=== PATIENT | male | born 1995 | race Caucasian/White ===

== ENCOUNTER 2025-03-13 21:11 | Emergency (ER) | payer OTHER, SELFPAY ==
[2025-03-13 21:15] VITALS: BP 125/77; PULSE 71; RESP 16; TEMP 36.6; O2SAT 99; BMI 29.2
[2025-03-13] MEDS: TETRACAINE 0.5% OPHTH 2 DROP EYE-LEFT (21:18)
[2025-03-13] MEDS: FLUORESCEIN SODIUM TOPICAL STRIP 1 STRIP EYE-LEFT (21:20)
--- NOTE | 2025-03-13 21:25 | ED.EYEPROB ---
HPI - Eye Problem General Time Seen by Provider: 21:25 Date Seen: 03/13/25 Chief complaint: Eye Problems Stated complaint: something in L eye Time Seen by Provider: 03/13/25 21:12 Source: patient and RN notes reviewed Mode of arrival: ambulatory Limitations: no limitations History of Present Illness HPI Narrative: This 29-year-old male was blowing leaves around 5:00 p.m., got something in his left eye. He states he cannot get it out. He states his vision is normal. It is hurting to open and close. He does not were contacts. They state that they can see something left in there. Related Data Home Medications ?Medication ?Instructions ?Recorded ?Confirmed No Known Home Medications 03/13/25 03/13/25 Allergies Allergy/AdvReac Type Severity Reaction Status Date / Time No Known Drug Allergies Allergy Verified 03/13/25 21:17 Review of Systems Narrative: As per HPI. Exam Const: Vital Signs, click to edit/add: Vital Signs - 24 hr 03/13/25 21:15 Temperature 97.8 F Pulse Rate [Pulse Oximeter] 71 Respiratory Rate 16 Blood Pressure [Ri ght Upper Arm] 125/77 Pulse Oximetry 99 Oxygen Delivery Me thod Room Air Patient is seen in exam room for, he is alert, interactive, no apparent distress but tearing from the left eye, holding it close. There is some vascular injection along the left inner conjunctiva. Pupils are equal round reactive, can see a punctate dark lesion in the cornea just to the right and slightly lower of the center. Tetracaine was placed and then floor is seen. He has a little conjunctiva will uptake along the medial eye. There is nothing on the cornea. Q-tip was used to try to remove the retained foreign body, it did not remove it at all. Small 30 gauge needle was used. I was able to gently curette the foreign body away in 3 separate pieces, was somewhat imbedded in the cornea. There is no puncture of the cornea, was able to just slowly but gently scraped the foreign body away in 3 separate pieces. 2 drops of gentamicin ophthalmic drops were applied, patient was placed in an eye patch made by using small 2 by 2s. His I did feel better at the end but he notably is likely stone with effects of the tetracaine. Documenting provider has reviewed patient's vital signs: yes Course Course ED Course: Have discussed with patient that he could be at risk for corneal ulceration and corneal injury. This seemed like it may have been a metallic fragment or something sharp that went into the cornea. I did have to do a little scraping with the fine 30 gauge needle to remove all of this. I did not appreciate any staining. There was no visible remnants left of any foreign body. We discussed the importance of follow-up with an eyeglass lens grinder or eye doctor if he has any ongoing issues. Vital Signs Vital signs: Initial Vital Signs Temperature 97.8 F 03/13/25 21:15 Temperature Source Temporal Artery Scan 03/13/25 21:15 Pulse Rate 71 03/13/25 21:15 Respiratory Rate 16 03/13/25 21:15 Blood Pressure 125/77 03/13/25 21:15 Blood Pressure Mean 93 03/13/25 21:15 Blood Pressure Position Sitting 03/13/25 21:15 Pulse Oximetry 99 03/13/25 21:15 Oxygen Delivery Method Room Air 03/13/25 21:15 Vital Signs Temperature 97.8 F 03/13/25 21:15 Pulse Rate 71 03/13/25 21:15 Respiratory Rate 16 03/13/25 21:15 Blood Pressure 125/77 03/13/25 21:15 Pulse Oximetry 99 03/13/25 21:15 Oxygen Delivery Method Room Air 03/13/25 21:15 Temperature 97.8 F 03/13/25 21:15 Pulse Rate 71 03/13/25 21:15 Respiratory Rate 16 03/13/25 21:15 Blood Pressure 125/77 03/13/25 21:15 Pulse Oximetry 99 03/13/25 21:15 Oxygen Delivery Method Room Air 03/13/25 21:15 Discharge Plan Discharge Clinical Impression: Corneal abrasion Qualifiers: Encounter type: initial encounter Laterality: left Qualified Code(s): S05.02XA - Injury of conjunctiva and corneal abrasion without foreign body, left eye, initial encounter Acute foreign body of cornea Qualifiers: Encounter type: initial encounter Laterality: left Qualified Code(s): T15.02XA - Foreign body in cornea, left eye, initial encounter Patient Disposition: Home, Self-Care Condition: Stable Instructions: Corneal Abrasion (ED), Eye Foreign Body (ED) Additional Instructions: Leave the eye patch on overnight, can take off in the morning. Recommend Tylenol 1000 mg 3 times a day baseline for pain, recommend taking a dose tonight before bed. You can supplement with ibuprofen 600 mg up to 4 times a day as needed for extra pain control. Your eye a very well may be sore and have sent a few tablets of oxycodone which is a narcotic. Take oxycodone with food to help prevent stomach upset. You should not operate machinery or drive for at least 6-8 hours after taking oxycodone. Oxycodone can be constipating, may need to use MiraLax and or senna to prevent this. Starting tomorrow morning, you will use the gentamicin eyedrops, 2 drops to the left eye 4 times a day for 5 days. If your IA is not rapidly improving as far as pain, need to see the eye doctor on Saturday. If you still have any visual remnants of the foreign body when you look through that area of the eye, you will also need to follow-up with an eye doctor. You can call [facility] at [phone] or choose optometry facility of your choice. Prescriptions: No Action No Known Home Medications Stand Alone Forms: [employer] Info Instructions
--- OUTSIDE RECORDS SUMMARY | 2025-03-13 22:04 | XMS_ITS | Clinical Summary ---
Author Organization [facility] Address [address] [place] [id number] Care Team Providers Care Hot Tamale Man Name Role Phone [facility] Provide r Allergies No known active allergies Medications acetaminophen (TYLENOL EXTRA STRGTH) 500 mg tabletIndicatio ns:Painful orthopaedic hardware Take 2 Tablets (1,000 mg) by mouth every 6 hours. Max acetaminophen dose: 4000mg in 24 hrs. 100 Tablet 1 03/11/2023 9:59 AM BREAKDOWN WORKER 3 Active ibuprofen (ADVIL; MOTRIN) 800 mg tabletIndicatio ns:Painful orthopaedic hardware Take 1 Tablet (800 mg) by mouth every 8 hours if needed for Pain (Moderate pain). 100 Tablet 1 03/11/2023 9:59 AM BREAKDOWN WORKER 3 Active omeprazole (PRILOSEC) 40 mg Delayed-Release capsuleIndicati ons:Laryngophar yngeal reflux (LPR),Globus sensation Take 1 Capsule (40 mg) by mouth once daily before a meal. Take in morning before breakfast unless told otherwise by your provider. 60 Capsule 3 4 Active Active Problems Problem Noted Date Diagnosed Date Healthcare maintenance 03/23/2024 Overview (03/23/2024): Vaccinations- dicussed. Pt Pain from implanted hardware 03/11/2023 History of tibial fracture 02/26/2023 Immunizations Immunization Administration Dates Next Due Tdap 03/13/2018 Family History Medical History Relation Name Comments Cancer-colon No Family History Social History Tobacco Use Types Packs/Day Years Used Date Smoking Tobacco: Never Passive Smoke Exposure: Never Smokeless Tobacco: Never Tobacco Cessation:Counseling Given: Not Answered Alcohol Use Standard Drinks/Week Comments Never 0 (1 standard drink = 0.6 oz pur e alcohol) PHQ-2 Answer Date Recorded PHQ-2 TOTAL SCORE 0 03/25/2024 Social Connections Answer Date Recorded Do you often feel lonely or isolated from those around you? 0 03/25/2024 Financial Resource Strain Answer Date R ecorded Difficulty of Paying Living Expenses 3 03/25/2024 Difficulty of Paying Living Expenses Not on file 03/25/2024 Food Insecurity Answer Date Recorded Do you worry your food will run out before you are able to buy more? 1 03/25/2024 Transportation Needs Answer Date Record ed Does lack of transportation keep you from medica l appointments? 1 03/25/2024 Does lack of transportation keep you from work, meetings or getting things that you need? 1 03/25/2024 Housing Stability Answer Date Recorded What is your housing situation today? 1 03/25/2024 Utilities Answer Date Recorded Do you have trouble paying f or utilities (for example, heat, electricity, water, phone)? 1 03/25/2024 Sex and Gender Information Value Date Recorded Sex Assigned at Not on file Legal Sex Male 3:54 PM CDT Gender Identity Not on file Sexual Orientation Not on file Obstetrics History Last Filed Vital Signs Vital Sign Reading Time Taken Comments Blood Pressure 128/70 03/25/2024 7:28 AM BREAKDOWN WORKER Pulse 79 03/25/2024 7:28 AM BREAKDOWN WORKER Temperature 36.3 C (97.4 F) 03/11/2023 10:15 AM BREAKDOWN WORKER Respiratory Rate 16 03/11/2023 10:15 AM BREAKDOWN WORKER Oxygen Saturation 100% 03/25/2024 7:28 AM BREAKDOWN WORKER Inhaled Oxygen Concentration - - Weight 105.2 kg (232 lb) 03/25/2024 7:28 AM BREAKDOWN WORKER Height 184 cm (6' 0.44) 03/25/2024 7:28 AM BREAKDOWN WORKER Body Mass Index 31.08 03/25/2024 7:28 AM BREAKDOWN WORKER Plan of Treatment Health Maintenance Due Date Last Done Comments HIV for age 15-65 2009 Hepatitis C screening for ag e 18-79 2012 Hepatitis B series for 19+ ( 1 of 3 - 19+ 3-dose series) 2013 HPV series for age 9-45 (1 - 3-dose SCDM series) 2021 Influenza Vaccine (#1) 2024 BMI (ht and wt on same day) for age 18+ 03/25/2025 03/25/2024 Depression screening for age 12+ 03/25/2025 03/25/20 24 Tetanus booster 03/13/2028 03/13/2018 RSV vaccine for adults or (1 - 1-dose 75+ series) 2069 Pneumococcal series for age 6-49 Aged Out No longer eligible based on patient's age to complete this topic Insurance [facility] [place] Advance Directives * Full Code (Latest Code Status on File) Date Activated Date Inactivated Comments 03/11/2023 6:27 AM 03/11/2023 12:38 PM Question Answer Comments Code Status Discussion: Unable to Assess Preferences, Provider to review later Care Teams Hot Tamale Man Relationship Specialty Start Date End Date Clinic, [facility] [address] [place] [id number] PCP - General 02/04/23
--- OUTSIDE RECORDS SUMMARY | 2025-03-13 22:04 | XMS_ITS | Clinical Summary ---
Author Organization [facility] Address [address] [place] [id number] Care Team Providers Care Defense Travel Administrator Name Role Phone No Ref-Primary, Physician Primary Care Provider Allergies No known active allergies Immunizations Immunization Administration Dates Next Due TDAP Vaccine (Adacel) 03/13/2018 Social History Tobacco Use Types Packs/Day Years Used Date Smoking Tobacco: Never Smokeless Tobacco: Never Alcohol Use Standard Drinks/Week Comments No 0 (1 standard drink = 0.6 oz pur e alcohol) Sex and Gender Information Value Date Recorded Sex Assigned at Not on file Legal Sex Male 7:08 PM WOOD PATTERN MAKER Gender Identity Not on file Sexual Orientation Not on file Last Filed Vital Signs Vital Sign Reading Time Taken Comments Blood Pressure 127/71 03/13/2018 8:04 PM WOOD PATTERN MAKER Pulse 80 03/13/2018 8:04 PM WOOD PATTERN MAKER Temperature 36.9 C (98.5 F) 03/13/2018 8:04 PM WOOD PATTERN MAKER Respiratory Rate 16 03/13/2018 8:04 PM WOOD PATTERN MAKER Oxygen Saturation 100% 03/13/2018 8:04 PM WOOD PATTERN MAKER Inhaled Oxygen Concentration - - Weight 97.5 kg (215 lb) 03/13/2018 8:04 PM WOOD PATTERN MAKER Height 182.9 cm (6') 03/13/2018 8:04 PM WOOD PATTERN MAKER Body Mass Index 29.16 03/13/2018 8:04 PM WOOD PATTERN MAKER Plan of Treatment Not on file Care Teams Defense Travel Administrator Relationship Specialty Start Date End Date No Ref-Primary, Physician PCP - General 03/13/18
[2025-03-13 22:08] VITALS: BP 121/74; PULSE 75; RESP 16; TEMP 36.6; O2SAT 99
[2025-03-13 22:09] VITALS: BP 121/74; PULSE 75; RESP 16; TEMP 36.6
== END 2025-03-13 22:12 | disposition home or self-care (01) ==
LOC: ED 22:03
PROVIDERS: Emergency Provider Family Medicine
DX: T15.02XA Foreign body in cornea, left eye, initial encounter (principal)
CPT/HCPCS: 65205; 99283; A9270